=== PATIENT | female | born 1995 | race Caucasian/White ===

== ENCOUNTER 2016-08-12 14:44 | Emergency (ER) | payer BC ==
[~2016-08-12] VITALS: Ht 160 cm; Wt 63.6 kg
[2016-08-12 14:48] VITALS: BP 135/63; PULSE 122; RESP 18; TEMP 99.2; O2SAT 97
--- NOTE | 2016-08-12 14:51 | PD ---
HPI Chief Complaint: Allergic/Adverse Reaction Time Seen by Provider: 14:51 Travel History International Travel<30 days: No Contact w/Intl Traveler<30days: No Traveled to known affect area: No History of Present Illness HPI 21-year-old female with history of idiopathic anaphylaxis, transient urticaria, presents to emergency department for an episode of anaphylaxis that began prior to [facility] been called. Patient states that her lip began to swell. She administered Benadryl, prednisone, and her epinephrine pen. She states occurrences used to be weakly but now she received IV Xolair and her episodes have been not as often. She is being followed outpatient very closely for this. Patient denies at this time he chest pain or tightness. No difficulty breathing. States that she feels much better and the swelling has gone down. She states typically when this occurs, she comes to the hospital and she is observed. She rarely requires additional intervention. She has no other symptoms reported this time. PFSH Past Medical History Autoimmune Disease: Yes ?: Not Social History Alcohol Use: No Tobacco Use: No Substance Use: No Allergies-Medications (Allergen,Severity, Reaction): Coded Allergies: Amoxicillin (Verified Allergy, Unknown, 08/12/16) Iodine (Verified Allergy, Unknown, 08/12/16) Penicillin (Verified Allergy, Unknown, 08/12/16) Tamiflu (Verified Allergy, Unknown, 08/12/16) Reported Meds & Prescriptions Reported Meds & Active Scripts Active Reported Zyrtec Allergy (Cetirizine HCl) 10 Mg Tab 10 Mg PO DAILY Flexeril (Cyclobenzaprine HCl) 5 Mg Tab 5 Mg PO TID Vicodin (Hydrocodone-Acetaminophen) 5-300 Mg Tab 1 Tab PO Q4H PRN Pepcid (Famotidine) 20 Mg Tab 20 Mg PO BID Flovent Hfa 10.6 GM Inh (Fluticasone Propionate) 44 Mcg/Act Inh 2 Puff INH BID Use daily at the same time. Fluoxetine (Fluoxetine HCl) 40 Mg Cap 40 Cap PO DAILY Xolair Inj (Omalizumab) 150 Mg Vial 150 Mg SQ Q28D Prednisone 20 Mg Tab 40 Mg PO DIRECTED Epipen 2-Ritchie Inj (Epinephrine) 0.3 Mg/0.3 Ml Pfpen 0.3 Mg IM ONCE PRN Benadryl Allergy (Diphenhydramine HCl) 25 Mg Tab 25 Mg PO Q6H PRN Review of Systems Except as stated in HPI: all other systems reviewed are Neg Physical Exam Narrative GENERAL: Well-nourished female patient, ambulatory in no acute distress SKIN: Warm and dry. No erythema or edema HEAD: Atraumatic. Normocephalic. EYES: Pupils equal and round. No scleral icterus. No injection or drainage. ENT: No nasal bleeding or discharge. Mucous membranes pink and moist. NECK: Trachea midline. No JVD. No stridor CARDIOVASCULAR: Tachycardic rate and rhythm. No murmur appreciated. RESPIRATORY: No accessory muscle use. Clear to auscultation. Breath sounds equal bilaterally. GASTROINTESTINAL: Abdomen soft, non-tender, nondistended. Hepatic and splenic margins not palpable. MUSCULOSKELETAL: No obvious deformities. No clubbing. No cyanosis. No edema. NEUROLOGICAL: Awake and alert. No obvious cranial nerve deficits. Motor grossly within normal limits. Normal speech. PSYCHIATRIC: Appropriate mood and affect; insight and judgment normal. Data Data Last Documented VS Vital Signs Date Time Temp Pulse Resp B/P Pulse Ox O2 Delivery O2 Flow Rate FiO2 08/12/16 16:49 104 16 113/54 97 Room Air 08/12/16 14:48 99.2 MDM Medical Decision Making Medical Screen Exam Complete: Yes Emergency Medical Condition: Yes Medical Record Reviewed: Yes Differential Diagnosis Idiopathic anaphylaxis, resolved versus allergic reaction versus angioedema versus anxiety Narrative Course 21 Year-old female with history of idiopathic anaphylaxis presents to the emergency department following an episode of anaphylaxis. She has already administered to herself Benadryl, prednisone, and her epinephrine pen. She verbalizes feeling much better. She is without hives. There is no angioedema. She is tachycardic. I discussed the patient with my attending physician Dr. Forte. She'll be observed for 4 hours after the administration. 1725 patient has remained stable. She is asymptomatic at this time. She is ready to be discharged home. Patient states that she has 5 other epi pens with her and does not need any prescription. She is return immediately with any acute worsening Diagnosis Primary Impression: Idiopathic anaphylaxis Qualified Code: T78.2XXS - Idiopathic anaphylaxis, sequela Referrals: Primary Care Physician Patient Instructions: Anaphylaxis (ED), General Instructions Additional Instructions: Follow-up with primary care provider Return immediately to the emergency department with any acute worsening Med/Other Pt SpecificInfo: No Change to Meds Disposition: 01 DISCHARGE HOME Condition: Stable Shona Valderrama Aug 12, 2016 14:51
[2016-08-12 14:52] VITALS: BP 135/63; PULSE 108; RESP 16; O2SAT 99
[2016-08-12] MEDS ORDERED: FLUTI44I INH (15:04)
[2016-08-12] MEDS ORDERED: FLUO40CA PO (15:04)
[2016-08-12] MEDS ORDERED: HYDR-3111 PO (15:04)
[2016-08-12] MEDS ORDERED: EPIP0.3I IM (15:04)
[2016-08-12] MEDS ORDERED: PRED20 PO (15:04)
[2016-08-12] MEDS ORDERED: CYCL5TAB PO (15:04)
[2016-08-12] MEDS ORDERED: BENA25TA3 PO (15:04)
[2016-08-12] MEDS ORDERED: XOLA150S SQ (15:04)
[2016-08-12] MEDS ORDERED: ZYRT10TA PO (15:04)
[2016-08-12] MEDS ORDERED: FAMO1TAB37 PO (15:04)
[2016-08-12 16:49] VITALS: BP 113/54; PULSE 104; RESP 16; O2SAT 97
== END 2016-08-12 17:39 | disposition home or self-care (01) ==
LOC: NEPA 14:44
DX: T78.2XXA Anaphylactic shock, unspecified, initial encounter (principal)
CPT/HCPCS: 99284